=== PATIENT | male | born 1990 | race Caucasian/White ===

== ENCOUNTER 2016-06-14 15:02 | Inpatient (IN) | payer MEDICAID ==
[~2016-06-14] VITALS: Ht 172.7 cm; Wt 51.0 kg
[2016-06-14] MEDS ORDERED: SODIUM CHLORIDE 0.9% 1,000 ML ONE ×2 (16:41→20:03)
[2016-06-14 21:09] VITALS: BMI 12.0
[2016-06-14] MEDS ORDERED: ACETAMINOPHEN 325 MG TAB PO PRN (21:30)
[2016-06-14] MEDS ORDERED: ONDANSETRON 4 MG VIAL IV PRN (21:30)
[2016-06-14] MEDS ORDERED: ALU/MAG/SIM 30 ML UDC PO PRN (21:30)
[2016-06-14] MEDS ORDERED: SALINE FLUSH 10 ML FLUSH PRN (21:30)
[2016-06-14 21:44] VITALS: RESP 10
[2016-06-14 22:00] VITALS: BP_SYST 105; RESP 9
[2016-06-14 22:15] VITALS: BP_SYST 113; RESP 11; TEMP 95.7
[2016-06-14] MEDS ORDERED: HALOPERIDOL 5 MG/ML VIAL IV ONE (22:15)
[2016-06-14] MEDS: D5-1/2-NS W/KCL 20MEQ/L 1,000 ML IV SCH (22:37)
[2016-06-14 23:00] VITALS: BP_SYST 92; RESP 9; TEMP 95.7
[2016-06-15] VITALS (66 sets, daily range): BP systolic 65–126; RESP 9–24; TEMP 95.7–98.1
[2016-06-15] MEDS: SODIUM CHLORIDE 0.9% FLUSH BAG 500 ML IV SCH (04:05)
[2016-06-15] MEDS ORDERED: LIDOCAINE 2% JELLY GLYDO 6 ML TOPICAL ONE (07:40)
[2016-06-15] MEDS ORDERED: ENOXAPARIN 30 MG/0.3 ML SYR SUBQ SCH (09:00)
[2016-06-15] MEDS: SALINE FLUSH 10 ML FLUSH SCH ×2 (10:25→21:49)
[2016-06-15] MEDS: PANTOPRAZOLE 40 MG VIAL IV SCH (10:39)
[2016-06-15] MEDS ORDERED: LACT RINGERS 1,000 ML IV ONE ×4 (10:40→12:15)
[2016-06-15] MEDS: D5-1/2-NS W/KCL 20MEQ/L 1,000 ML IV SCH ×2 (13:15→23:11)
[2016-06-15] MEDS ORDERED: LORAZEPAM 2 MG/ML VIAL IV PRN (15:40)
[2016-06-15] MEDS: MAGNESIUM SULF 1 GM/100 ML 100 ML IV SCH ×2 (21:48→23:10)
[2016-06-16] VITALS (21 sets, daily range): BP systolic 72–123; RESP 9–18; TEMP 97–99.4; Ht 172.7 cm; Wt 51.0 kg
[2016-06-16] MEDS: SODIUM CHLORIDE 0.9% FLUSH BAG 500 ML IV SCH (06:22)
[2016-06-16] MEDS: PANTOPRAZOLE 40 MG VIAL IV SCH (08:29)
[2016-06-16] MEDS: SALINE FLUSH 10 ML FLUSH SCH ×2 (08:29→20:57)
[2016-06-16] MEDS: D5-1/2-NS W/KCL 20MEQ/L 1,000 ML IV SCH ×2 (08:31→20:57)
[2016-06-16] MEDS: BACITRACIN OINT TOPICAL SCH ×2 (11:39→20:57)
[2016-06-17 04:34] VITALS: BP_SYST 125; RESP 18; TEMP 98.9
[2016-06-17] MEDS: SODIUM CHLORIDE 0.9% FLUSH BAG 500 ML IV SCH (04:41)
[2016-06-17 07:47] VITALS: BP_SYST 90; RESP 18; TEMP 98.1
[2016-06-17] MEDS: PANTOPRAZOLE 40 MG VIAL IV SCH (08:39)
[2016-06-17] MEDS: SALINE FLUSH 10 ML FLUSH SCH ×2 (08:39→20:00)
[2016-06-17] MEDS: BACITRACIN OINT TOPICAL SCH ×2 (08:40→20:38)
[2016-06-17 11:25] VITALS: BP_SYST 92; TEMP 97.5
[2016-06-17 15:37] VITALS: BP_SYST 86; BP_SYST 98; RESP 16; TEMP 97.3
[2016-06-17] MEDS: D5-1/2-NS W/KCL 20MEQ/L 1,000 ML IV SCH (17:18)
[2016-06-17 19:00] VITALS: BP_SYST 90; RESP 18; TEMP 97.4
[2016-06-17 23:00] VITALS: BP_SYST 98; RESP 18; TEMP 97.5
[2016-06-18] MEDS: D5-1/2-NS W/KCL 20MEQ/L 1,000 ML IV SCH ×2 (02:56→14:15)
[2016-06-18 03:00] VITALS: BP_SYST 95; RESP 18; TEMP 97.9
[2016-06-18] MEDS: SODIUM CHLORIDE 0.9% FLUSH BAG 500 ML IV SCH (05:34)
[2016-06-18 07:19] VITALS: BP_SYST 96; RESP 16; TEMP 97.2
[2016-06-18] MEDS: SALINE FLUSH 10 ML FLUSH SCH ×2 (07:38→21:28)
[2016-06-18] MEDS: PANTOPRAZOLE 40 MG TAB PO SCH (09:04)
[2016-06-18] MEDS: BACITRACIN OINT TOPICAL SCH ×2 (09:04→21:28)
[2016-06-18 11:01] VITALS: BP_SYST 91; RESP 16; TEMP 97.7
[2016-06-18] MEDS ORDERED: Phytonadione 5 MG TAB PO ONE (12:05)
[2016-06-18 15:00] VITALS: BP_SYST 93; RESP 16; TEMP 98.4
[2016-06-18 20:12] VITALS: BP_SYST 95; RESP 18; TEMP 98.2
[2016-06-18] MEDS: FERROUS SULF 325 MG TAB PO SCH (21:28)
[2016-06-18] MEDS: FOLIC ACID 1 MG TAB PO SCH (21:28)
[2016-06-19] VITALS (7 sets, daily range): BP systolic 90–98; RESP 14–20; TEMP 97.7–98.7
[2016-06-19] MEDS: D5-1/2-NS W/KCL 20MEQ/L 1,000 ML IV SCH ×2 (00:34→19:36)
[2016-06-19] MEDS: SODIUM CHLORIDE 0.9% FLUSH BAG 500 ML IV SCH (05:32)
[2016-06-19] MEDS: PANTOPRAZOLE 40 MG TAB PO SCH (06:11)
[2016-06-19] MEDS: SALINE FLUSH 10 ML FLUSH SCH ×2 (08:27→19:11)
[2016-06-19] MEDS: BACITRACIN OINT TOPICAL SCH ×2 (08:27→20:01)
[2016-06-19] MEDS: FERROUS SULF 325 MG TAB PO SCH ×3 (08:27→20:01)
[2016-06-19] MEDS: FOLIC ACID 1 MG TAB PO SCH (08:27)
[2016-06-20 03:29] VITALS: BP_SYST 97; RESP 14; TEMP 97.8
[2016-06-20] MEDS: D5-1/2-NS W/KCL 20MEQ/L 1,000 ML IV SCH (04:57)
[2016-06-20] MEDS: SODIUM CHLORIDE 0.9% FLUSH BAG 500 ML IV SCH ×2 (05:04)
[2016-06-20] MEDS: PANTOPRAZOLE 40 MG TAB PO SCH (06:09)
[2016-06-20] MEDS: SALINE FLUSH 10 ML FLUSH SCH ×2 (07:38→19:18)
[2016-06-20 08:11] VITALS: BP_SYST 92; RESP 14; TEMP 97.6
[2016-06-20] MEDS: FERROUS SULF 325 MG TAB PO SCH ×3 (08:47→20:00)
[2016-06-20] MEDS: FOLIC ACID 1 MG TAB PO SCH (08:47)
[2016-06-20] MEDS: BACITRACIN OINT TOPICAL SCH ×2 (08:48→20:00)
[2016-06-20 12:34] VITALS: BP_SYST 94; RESP 14; TEMP 97.7
[2016-06-20 15:29] VITALS: BP_SYST 90; RESP 16; TEMP 97.4
[2016-06-20] MEDS: MIDODRINE 10 MG TAB PO SCH (16:49)
[2016-06-20 20:06] VITALS: BP_SYST 92; RESP 18; TEMP 98.2
[2016-06-21] VITALS (8 sets, daily range): BP systolic 83–94; RESP 14–20; TEMP 97.6–98.8
[2016-06-21] MEDS: SODIUM CHLORIDE 0.9% FLUSH BAG 500 ML IV SCH ×2 (05:06)
[2016-06-21] MEDS: MIDODRINE 10 MG TAB PO SCH ×3 (05:57→15:54)
[2016-06-21] MEDS: PANTOPRAZOLE 40 MG TAB PO SCH (05:57)
[2016-06-21] MEDS: BACITRACIN OINT TOPICAL SCH ×2 (08:10→21:32)
[2016-06-21] MEDS: FERROUS SULF 325 MG TAB PO SCH ×3 (08:10→21:32)
[2016-06-21] MEDS: FOLIC ACID 1 MG TAB PO SCH ×2 (08:10→21:32)
[2016-06-21] MEDS: SALINE FLUSH 10 ML FLUSH SCH ×2 (08:10→21:33)
[2016-06-22] MEDS ORDERED: MISSING DOSE XX ONE (03:15)
[2016-06-22] MEDS: SODIUM CHLORIDE 0.9% FLUSH BAG 500 ML IV SCH ×2 (04:12)
[2016-06-22 05:07] VITALS: BP_SYST 96; RESP 14; TEMP 98
[2016-06-22] MEDS: PANTOPRAZOLE 40 MG TAB PO SCH (06:16)
[2016-06-22] MEDS: MIDODRINE 10 MG TAB PO SCH ×3 (06:16→15:53)
[2016-06-22 07:29] VITALS: BP_SYST 90; RESP 16; TEMP 97.6
[2016-06-22] MEDS: SALINE FLUSH 10 ML FLUSH SCH ×2 (08:32→21:14)
[2016-06-22] MEDS: FERROUS SULF 325 MG TAB PO SCH ×3 (08:32→21:13)
[2016-06-22] MEDS: FOLIC ACID 1 MG TAB PO SCH ×2 (08:33→21:13)
[2016-06-22] MEDS: BACITRACIN OINT TOPICAL SCH ×2 (08:33→21:14)
[2016-06-22 11:36] VITALS: BP_SYST 89; RESP 24; TEMP 98.4
[2016-06-22 15:28] VITALS: BP_SYST 92; RESP 20; TEMP 98.7
[2016-06-22] MEDS: BISACODYL 10 MG SUPP RECTAL PRN (15:53)
[2016-06-22 19:36] VITALS: BP_SYST 92; RESP 16; TEMP 98.7
[2016-06-23] VITALS (7 sets, daily range): BP systolic 87–98; RESP 16–24; TEMP 97.3–98.9
[2016-06-23] MEDS: SODIUM CHLORIDE 0.9% FLUSH BAG 500 ML IV SCH ×2 (05:43)
[2016-06-23] MEDS: PANTOPRAZOLE 40 MG TAB PO SCH (05:44)
[2016-06-23] MEDS: MIDODRINE 10 MG TAB PO SCH ×3 (05:44→17:02)
[2016-06-23] MEDS: SALINE FLUSH 10 ML FLUSH SCH ×2 (08:00→21:04)
[2016-06-23] MEDS: BACITRACIN OINT TOPICAL SCH ×2 (10:27→21:04)
[2016-06-23] MEDS: FOLIC ACID 1 MG TAB PO SCH ×2 (10:27→21:04)
[2016-06-23] MEDS: FERROUS SULF 325 MG TAB PO SCH ×3 (10:27→21:04)
[2016-06-24 05:31] VITALS: BP_SYST 99; RESP 18; TEMP 98
[2016-06-24] MEDS: SODIUM CHLORIDE 0.9% FLUSH BAG 500 ML IV SCH ×2 (06:00)
[2016-06-24] MEDS: PANTOPRAZOLE 40 MG TAB PO SCH (06:16)
[2016-06-24] MEDS: MIDODRINE 10 MG TAB PO SCH ×3 (06:16→15:53)
[2016-06-24 07:20] VITALS: BP_SYST 82; BP_SYST 86; RESP 18; TEMP 97
[2016-06-24] MEDS: FERROUS SULF 325 MG TAB PO SCH ×3 (08:51→20:34)
[2016-06-24] MEDS: FOLIC ACID 1 MG TAB PO SCH ×2 (08:51→20:34)
[2016-06-24] MEDS: SALINE FLUSH 10 ML FLUSH SCH ×2 (08:51→20:34)
[2016-06-24] MEDS: BACITRACIN OINT TOPICAL SCH ×2 (08:51→20:34)
[2016-06-24 10:54] VITALS: BP_SYST 84; RESP 20; TEMP 97.5
[2016-06-24 15:21] VITALS: BP_SYST 95; RESP 18; TEMP 97.1
[2016-06-24 19:33] VITALS: BP_SYST 104; RESP 18; TEMP 97.2
[2016-06-24 23:32] VITALS: BP_SYST 81; BP_SYST 82; RESP 18; TEMP 97.4
[2016-06-25 03:36] VITALS: BP_SYST 86; RESP 18; TEMP 97.4
[2016-06-25] MEDS: SODIUM CHLORIDE 0.9% FLUSH BAG 500 ML IV SCH ×2 (06:00)
[2016-06-25] MEDS: PANTOPRAZOLE 40 MG TAB PO SCH (06:15)
[2016-06-25] MEDS: MIDODRINE 10 MG TAB PO SCH ×3 (06:15→16:05)
[2016-06-25 07:21] VITALS: BP_SYST 84; BP_SYST 86; RESP 18; TEMP 97.6
[2016-06-25] MEDS: SALINE FLUSH 10 ML FLUSH SCH ×2 (08:47→22:02)
[2016-06-25] MEDS: FOLIC ACID 1 MG TAB PO SCH ×2 (08:47→22:01)
[2016-06-25] MEDS: BACITRACIN OINT TOPICAL SCH ×2 (08:47→22:01)
[2016-06-25] MEDS: FERROUS SULF 325 MG TAB PO SCH ×3 (08:47→22:01)
[2016-06-25 11:13] VITALS: BP_SYST 91; BP_SYST 94; RESP 16; TEMP 98.1
[2016-06-25 14:50] VITALS: BP_SYST 64; RESP 20; TEMP 98
[2016-06-25 19:11] VITALS: BP_SYST 98; RESP 18; TEMP 97.9
[2016-06-25 23:26] VITALS: BP_SYST 76; BP_SYST 78; RESP 18; TEMP 98.3
[2016-06-26 03:08] VITALS: BP_SYST 88; RESP 18; TEMP 97.8
[2016-06-26] MEDS: SODIUM CHLORIDE 0.9% FLUSH BAG 500 ML IV SCH ×2 (06:00)
[2016-06-26 07:16] VITALS: BP_SYST 79; RESP 18; TEMP 98.3
[2016-06-26] MEDS: MIDODRINE 10 MG TAB PO SCH ×3 (07:21→17:56)
[2016-06-26] MEDS: PANTOPRAZOLE 40 MG TAB PO SCH (07:21)
[2016-06-26] MEDS: SALINE FLUSH 10 ML FLUSH SCH ×2 (08:00→20:16)
[2016-06-26] MEDS: BACITRACIN OINT TOPICAL SCH ×2 (09:32→20:17)
[2016-06-26] MEDS: FERROUS SULF 325 MG TAB PO SCH ×3 (09:32→20:17)
[2016-06-26] MEDS: FOLIC ACID 1 MG TAB PO SCH ×2 (09:33→20:16)
[2016-06-26 11:45] VITALS: BP_SYST 89; RESP 20; TEMP 97.6
[2016-06-26 15:16] VITALS: BP_SYST 94; RESP 16; TEMP 97.7
[2016-06-26 19:29] VITALS: BP_SYST 95; RESP 18; TEMP 98.1
[2016-06-26 23:22] VITALS: BP_SYST 92; RESP 18; TEMP 97.8
[2016-06-27 03:31] VITALS: BP_SYST 83; RESP 18; TEMP 97.8
[2016-06-27] MEDS: MAG HYDROX 30 ML UDC PO PRN (05:40)
[2016-06-27] MEDS: MIDODRINE 10 MG TAB PO SCH ×3 (05:41→18:23)
[2016-06-27] MEDS: PANTOPRAZOLE 40 MG TAB PO SCH (05:41)
[2016-06-27 07:37] VITALS: BP_SYST 95; RESP 16; TEMP 97.7
[2016-06-27] MEDS: FOLIC ACID 1 MG TAB PO SCH ×2 (08:31→21:22)
[2016-06-27] MEDS: FERROUS SULF 325 MG TAB PO SCH ×3 (08:31→21:22)
[2016-06-27] MEDS: SALINE FLUSH 10 ML FLUSH SCH ×2 (08:31→21:23)
[2016-06-27] MEDS: BACITRACIN OINT TOPICAL SCH ×2 (08:32→21:23)
[2016-06-27 10:41] VITALS: BP_SYST 96; RESP 18; TEMP 98
[2016-06-27 15:03] VITALS: BP_SYST 94; RESP 16; TEMP 97.2
[2016-06-27 19:18] VITALS: BP_SYST 83; RESP 16; TEMP 98.1
[2016-06-27 22:47] VITALS: BP_SYST 99; RESP 16; TEMP 97.8
[2016-06-28 04:01] VITALS: BP_SYST 87; RESP 16; TEMP 97.8
[2016-06-28] MEDS: PANTOPRAZOLE 40 MG TAB PO SCH (06:18)
[2016-06-28] MEDS: MIDODRINE 10 MG TAB PO SCH ×3 (06:18→16:32)
[2016-06-28 07:45] VITALS: BP_SYST 85; TEMP 97.9
[2016-06-28] MEDS: FERROUS SULF 325 MG TAB PO SCH ×3 (08:36→21:57)
[2016-06-28] MEDS: SALINE FLUSH 10 ML FLUSH SCH ×2 (08:36→20:00)
[2016-06-28] MEDS: BACITRACIN OINT TOPICAL SCH ×2 (08:36→21:58)
[2016-06-28] MEDS: FOLIC ACID 1 MG TAB PO SCH ×2 (08:36→21:51)
[2016-06-28 11:39] VITALS: BP_SYST 88; RESP 16; TEMP 97.4
[2016-06-28 15:07] VITALS: BP_SYST 90; RESP 18; TEMP 98
[2016-06-28 20:36] VITALS: BP_SYST 94; RESP 18; TEMP 98
[2016-06-28 23:26] VITALS: BP_SYST 92; RESP 16; TEMP 98
[2016-06-29 03:50] VITALS: BP_SYST 89; RESP 16; TEMP 97.7
[2016-06-29] MEDS: MIDODRINE 10 MG TAB PO SCH ×3 (06:22→15:20)
[2016-06-29] MEDS: PANTOPRAZOLE 40 MG TAB PO SCH (06:22)
[2016-06-29 07:26] VITALS: BP_SYST 83; RESP 16; TEMP 97.2
[2016-06-29] MEDS: FOLIC ACID 1 MG TAB PO SCH ×2 (08:59→20:59)
[2016-06-29] MEDS: SALINE FLUSH 10 ML FLUSH SCH ×2 (08:59→20:59)
[2016-06-29] MEDS: BACITRACIN OINT TOPICAL SCH ×2 (08:59→21:00)
[2016-06-29] MEDS: FERROUS SULF 325 MG TAB PO SCH ×3 (09:01→21:00)
[2016-06-29 11:46] VITALS: BP_SYST 95; RESP 16; TEMP 98.3
[2016-06-29 15:15] VITALS: BP_SYST 101; RESP 16; TEMP 98.6
[2016-06-29 20:32] VITALS: BP_SYST 91; RESP 16; TEMP 98.5
[2016-06-29 22:58] VITALS: BP_SYST 88; RESP 16; TEMP 97.3
[2016-06-30 04:19] VITALS: BP_SYST 94; RESP 18; TEMP 97.6
[2016-06-30] MEDS: PANTOPRAZOLE 40 MG TAB PO SCH (06:34)
[2016-06-30 07:58] VITALS: BP_SYST 78; RESP 16; TEMP 98.3
[2016-06-30] MEDS: SALINE FLUSH 10 ML FLUSH SCH ×2 (08:50→21:09)
[2016-06-30] MEDS: FOLIC ACID 1 MG TAB PO SCH ×2 (08:51→21:10)
[2016-06-30] MEDS: BACITRACIN OINT TOPICAL SCH ×2 (08:52→21:11)
[2016-06-30] MEDS: FERROUS SULF 325 MG TAB PO SCH ×3 (08:54→21:10)
[2016-06-30 12:04] VITALS: BP_SYST 86; RESP 18; TEMP 97.3
[2016-06-30 15:06] VITALS: BP_SYST 92; RESP 16; TEMP 97.4
[2016-06-30 19:50] VITALS: BP_SYST 83; RESP 18; TEMP 97.7
[2016-06-30 23:54] VITALS: BP_SYST 86; RESP 16; TEMP 97.5
[2016-07-01 03:15] VITALS: BP_SYST 84; RESP 16; TEMP 97.6
[2016-07-01] MEDS: PANTOPRAZOLE 40 MG TAB PO SCH (05:53)
[2016-07-01 07:30] VITALS: BP_SYST 88; RESP 16; TEMP 97.7
[2016-07-01] MEDS: SALINE FLUSH 10 ML FLUSH SCH ×2 (08:00→20:41)
[2016-07-01] MEDS: FERROUS SULF 325 MG TAB PO SCH ×3 (08:19→20:42)
[2016-07-01] MEDS: FOLIC ACID 1 MG TAB PO SCH ×2 (08:19→20:42)
[2016-07-01] MEDS: BACITRACIN OINT TOPICAL SCH ×2 (08:19→20:42)
[2016-07-01 11:02] VITALS: BP_SYST 87; RESP 16; TEMP 97.6
[2016-07-01 15:05] VITALS: BP_SYST 91; RESP 16; TEMP 97.9
[2016-07-01 19:47] VITALS: BP_SYST 87; RESP 18; TEMP 98
[2016-07-01 22:46] VITALS: BP_SYST 88; RESP 16; TEMP 97.5
[2016-07-02 03:05] VITALS: BP_SYST 94; RESP 16; TEMP 97.3
[2016-07-02] MEDS: PANTOPRAZOLE 40 MG TAB PO SCH (06:02)
[2016-07-02 07:32] VITALS: BP_SYST 84; RESP 16; TEMP 97.9
[2016-07-02] MEDS: SALINE FLUSH 10 ML FLUSH SCH ×2 (08:00→21:00)
[2016-07-02] MEDS: FOLIC ACID 1 MG TAB PO SCH ×2 (08:40→20:59)
[2016-07-02] MEDS: BACITRACIN OINT TOPICAL SCH ×2 (08:40→21:00)
[2016-07-02] MEDS: FERROUS SULF 325 MG TAB PO SCH ×3 (08:40→20:59)
[2016-07-02] MEDS ORDERED: MISSING DOSE XX ONE (08:45)
[2016-07-02 10:57] VITALS: BP_SYST 87; RESP 16; TEMP 97.5
[2016-07-02 15:16] VITALS: BP_SYST 93; RESP 20; TEMP 97.6
[2016-07-02 19:25] VITALS: BP_SYST 82; RESP 16; TEMP 97.4
[2016-07-02 23:46] VITALS: BP_SYST 91; RESP 16; TEMP 97.4
[2016-07-03 03:29] VITALS: BP_SYST 95; RESP 16; TEMP 97.6
[2016-07-03] MEDS: PANTOPRAZOLE 40 MG TAB PO SCH (05:41)
[2016-07-03 07:40] VITALS: BP_SYST 89; RESP 16; TEMP 97.1
[2016-07-03] MEDS: FOLIC ACID 1 MG TAB PO SCH ×2 (09:14→22:04)
[2016-07-03] MEDS: SALINE FLUSH 10 ML FLUSH SCH (09:15)
[2016-07-03] MEDS: BACITRACIN OINT TOPICAL SCH (09:15)
[2016-07-03] MEDS: FERROUS SULF 325 MG TAB PO SCH ×3 (09:15→22:04)
[2016-07-03 11:14] VITALS: BP_SYST 88; RESP 16; TEMP 97.5
[2016-07-03 15:22] VITALS: BP_SYST 95; RESP 16; TEMP 98.2
[2016-07-03 21:46] VITALS: BP_SYST 88; RESP 18; TEMP 98.7
[2016-07-04] VITALS (7 sets, daily range): BP systolic 84–100; RESP 16–18; TEMP 97.4–98.2
[2016-07-04] MEDS: FOLIC ACID 1 MG TAB PO SCH ×2 (11:16→23:00)
[2016-07-04] MEDS: FERROUS SULF 325 MG TAB PO SCH ×3 (11:16→23:00)
[2016-07-05] VITALS (10 sets, daily range): BP systolic 85–98; RESP 16–20; TEMP 97.4–97.9
[2016-07-05] MEDS: FERROUS SULF 325 MG TAB PO SCH ×3 (10:07→21:18)
[2016-07-05] MEDS: FOLIC ACID 1 MG TAB PO SCH ×2 (10:07→21:18)
[2016-07-06 03:42] VITALS: BP_SYST 96; RESP 18; TEMP 97.3
[2016-07-06 07:30] VITALS: BP_SYST 90; RESP 16; TEMP 98.1
[2016-07-06] MEDS: FERROUS SULF 325 MG TAB PO SCH ×3 (08:33→20:52)
[2016-07-06] MEDS: FOLIC ACID 1 MG TAB PO SCH ×2 (08:33→20:52)
[2016-07-06 11:05] VITALS: BP_SYST 96; RESP 16; TEMP 98.2
[2016-07-06 14:52] VITALS: BP_SYST 94; RESP 16; TEMP 97.9
[2016-07-06 19:36] VITALS: BP_SYST 96; RESP 18; TEMP 97.7
[2016-07-07] VITALS (8 sets, daily range): BP systolic 75–99; RESP 16–18; TEMP 97.4–98.2
[2016-07-07] MEDS: BISACODYL 10 MG SUPP RECTAL PRN (07:32)
[2016-07-07] MEDS: FOLIC ACID 1 MG TAB PO SCH ×2 (09:09→19:49)
[2016-07-07] MEDS: FERROUS SULF 325 MG TAB PO SCH ×3 (09:09→19:49)
[2016-07-07] MEDS ORDERED: SODIUM CHLORIDE 0.9% 1,000 ML IV SCH (12:25)
[2016-07-08 03:19] VITALS: BP_SYST 99; RESP 16; TEMP 97.2
[2016-07-08 07:21] VITALS: BP_SYST 91; RESP 16; TEMP 97.9
[2016-07-08] MEDS: FERROUS SULF 325 MG TAB PO SCH ×3 (09:26→20:59)
[2016-07-08] MEDS: FOLIC ACID 1 MG TAB PO SCH ×2 (09:26→21:00)
[2016-07-08 10:52] VITALS: BP_SYST 92; RESP 18; TEMP 98
[2016-07-08 14:46] VITALS: BP_SYST 98; RESP 18; TEMP 98.4
[2016-07-08 19:52] VITALS: BP_SYST 88; RESP 16; TEMP 97.7
[2016-07-09 00:24] VITALS: BP_SYST 98; RESP 16; TEMP 97.4
[2016-07-09 03:52] VITALS: BP_SYST 95; RESP 16; TEMP 97.7
[2016-07-09 07:19] VITALS: BP_SYST 90; RESP 16; TEMP 97.5
[2016-07-09] MEDS: FERROUS SULF 325 MG TAB PO SCH ×3 (09:52→20:35)
[2016-07-09] MEDS: FOLIC ACID 1 MG TAB PO SCH ×2 (09:52→20:35)
[2016-07-09 11:14] VITALS: BP_SYST 91; RESP 18; TEMP 97.9
[2016-07-09 15:34] VITALS: BP_SYST 92; RESP 18; TEMP 98.4
[2016-07-09 20:36] VITALS: BP_SYST 92; RESP 16; TEMP 97.7
[2016-07-10] VITALS (7 sets, daily range): BP systolic 86–96; RESP 16–20; TEMP 97.4–98.1
[2016-07-10] MEDS: FOLIC ACID 1 MG TAB PO SCH ×2 (09:35→21:31)
[2016-07-10] MEDS: FERROUS SULF 325 MG TAB PO SCH ×3 (09:35→21:31)
[2016-07-11 02:41] VITALS: BP_SYST 87; RESP 18; TEMP 97.9
[2016-07-11 07:14] VITALS: BP_SYST 102; RESP 16; TEMP 97.5
[2016-07-11] MEDS: FERROUS SULF 325 MG TAB PO SCH ×3 (08:36→20:11)
[2016-07-11] MEDS: FOLIC ACID 1 MG TAB PO SCH ×2 (08:36→20:11)
[2016-07-11 11:04] VITALS: BP_SYST 95; RESP 20; TEMP 98
[2016-07-11 15:44] VITALS: BP_SYST 97; RESP 16; TEMP 98.3
[2016-07-11 19:36] VITALS: BP_SYST 80; RESP 16; TEMP 98.5
[2016-07-11 23:24] VITALS: BP_SYST 95; RESP 18; TEMP 98.1
[2016-07-12 04:07] VITALS: BP_SYST 93; RESP 16; TEMP 98
[2016-07-12 07:12] VITALS: BP_SYST 97; RESP 16; TEMP 97.7
[2016-07-12] MEDS: FERROUS SULF 325 MG TAB PO SCH ×3 (08:33→21:00)
[2016-07-12] MEDS: FOLIC ACID 1 MG TAB PO SCH ×2 (08:33→21:00)
[2016-07-12] MEDS: BISACODYL 10 MG SUPP RECTAL PRN (08:33)
[2016-07-12 10:58] VITALS: BP_SYST 99; RESP 16; TEMP 97.8
[2016-07-12 15:34] VITALS: BP_SYST 95; RESP 20; TEMP 97.6
[2016-07-12 19:32] VITALS: BP_SYST 100; RESP 16; TEMP 97.8
[2016-07-12 19:33] VITALS: RESP 16
[2016-07-13 00:08] VITALS: BP_SYST 101; RESP 16; TEMP 97.3
[2016-07-13 04:37] VITALS: BP_SYST 92; RESP 16; TEMP 97.5
[2016-07-13 07:20] VITALS: BP_SYST 96; RESP 20; TEMP 97.5
[2016-07-13] MEDS: FERROUS SULF 325 MG TAB PO SCH ×3 (09:36→21:04)
[2016-07-13] MEDS: FOLIC ACID 1 MG TAB PO SCH ×2 (09:36→21:04)
[2016-07-13 11:04] VITALS: BP_SYST 97; RESP 20; TEMP 97.8
[2016-07-13 15:11] VITALS: BP_SYST 103; RESP 20; TEMP 97.9
[2016-07-13 19:24] VITALS: BP_SYST 90; RESP 20; TEMP 97.5
[2016-07-14] VITALS (8 sets, daily range): BP systolic 94–105; RESP 16–18; TEMP 97.4–99.1
[2016-07-14] MEDS: FOLIC ACID 1 MG TAB PO SCH ×2 (08:35→20:50)
[2016-07-14] MEDS: FERROUS SULF 325 MG TAB PO SCH ×3 (08:35→20:50)
[2016-07-15 03:18] VITALS: BP_SYST 104; RESP 18; TEMP 98
[2016-07-15 07:24] VITALS: BP_SYST 94; RESP 16; TEMP 98
[2016-07-15] MEDS: FERROUS SULF 325 MG TAB PO SCH ×3 (08:43→21:16)
[2016-07-15] MEDS: FOLIC ACID 1 MG TAB PO SCH ×2 (08:43→21:16)
[2016-07-15 10:47] VITALS: BP_SYST 93; RESP 20; TEMP 97.8
[2016-07-15 15:29] VITALS: BP_SYST 94; RESP 20; TEMP 97.5
[2016-07-15 19:42] VITALS: BP_SYST 96; RESP 18; TEMP 97.8
[2016-07-15 22:47] VITALS: BP_SYST 101; RESP 16; TEMP 97.6
[2016-07-16 03:11] VITALS: BP_SYST 103; RESP 18; TEMP 98.1
[2016-07-16 07:39] VITALS: BP_SYST 107; RESP 16; TEMP 97.7
[2016-07-16] MEDS: FOLIC ACID 1 MG TAB PO SCH ×2 (08:23→20:25)
[2016-07-16] MEDS: FERROUS SULF 325 MG TAB PO SCH ×3 (08:23→20:26)
[2016-07-16 11:52] VITALS: BP_SYST 106; RESP 18; TEMP 97.3
[2016-07-16 16:36] VITALS: BP_SYST 108; RESP 16; TEMP 98.1
[2016-07-16 19:33] VITALS: BP_SYST 98; RESP 16; TEMP 98.3
[2016-07-16 23:20] VITALS: BP_SYST 103; RESP 16; TEMP 98
[2016-07-17 04:08] VITALS: BP_SYST 104; RESP 16; TEMP 98.2
[2016-07-17 07:25] VITALS: BP_SYST 141; RESP 18; TEMP 98
[2016-07-17] MEDS: FERROUS SULF 325 MG TAB PO SCH ×3 (09:24→21:47)
[2016-07-17] MEDS: FOLIC ACID 1 MG TAB PO SCH ×2 (09:24→21:47)
[2016-07-17 11:47] VITALS: BP_SYST 111; RESP 18; TEMP 98.2
[2016-07-17 15:38] VITALS: BP_SYST 101; RESP 18; TEMP 98.1
[2016-07-17 19:06] VITALS: BP_SYST 101; RESP 18; TEMP 97.8
[2016-07-17 23:01] VITALS: BP_SYST 102; RESP 16; TEMP 97.5
[2016-07-18 02:53] VITALS: BP_SYST 93; RESP 18; TEMP 98.1
[2016-07-18 07:21] VITALS: BP_SYST 90; RESP 18; TEMP 97.3
[2016-07-18] MEDS: FOLIC ACID 1 MG TAB PO SCH ×2 (09:17→19:47)
[2016-07-18] MEDS: FERROUS SULF 325 MG TAB PO SCH ×3 (09:17→19:48)
[2016-07-18 11:05] VITALS: BP_SYST 96; RESP 18; TEMP 97.7
[2016-07-18 15:43] VITALS: BP_SYST 90; RESP 18; TEMP 97.5
[2016-07-18 19:35] VITALS: BP_SYST 107; RESP 18; TEMP 97.5
[2016-07-18 23:17] VITALS: BP_SYST 95; RESP 16; TEMP 97.5
[2016-07-19 03:25] VITALS: BP_SYST 96; RESP 18; TEMP 97.2
[2016-07-19 07:31] VITALS: BP_SYST 98; RESP 18; TEMP 97.3
[2016-07-19] MEDS: FERROUS SULF 325 MG TAB PO SCH ×3 (09:08→20:44)
[2016-07-19] MEDS: FOLIC ACID 1 MG TAB PO SCH ×2 (09:08→20:44)
[2016-07-19 11:46] VITALS: BP_SYST 94; RESP 18; TEMP 97.3
[2016-07-19 14:53] VITALS: BP_SYST 97; RESP 16; TEMP 97.7
[2016-07-19 19:50] VITALS: BP_SYST 102; RESP 18; TEMP 97.9
[2016-07-20] VITALS (7 sets, daily range): BP systolic 91–102; RESP 16–20; TEMP 97.6–98.2
[2016-07-20] MEDS: FOLIC ACID 1 MG TAB PO SCH ×2 (08:20→21:50)
[2016-07-20] MEDS: FERROUS SULF 325 MG TAB PO SCH ×3 (08:20→21:50)
[2016-07-21 03:25] VITALS: BP_SYST 101; RESP 20; TEMP 98.5
[2016-07-21 07:22] VITALS: BP_SYST 99; RESP 16; TEMP 97.3
[2016-07-21] MEDS: FERROUS SULF 325 MG TAB PO SCH ×3 (07:55→21:59)
[2016-07-21] MEDS: FOLIC ACID 1 MG TAB PO SCH ×2 (07:55→21:59)
[2016-07-21 11:17] VITALS: BP_SYST 92; RESP 16; TEMP 97.9
[2016-07-21 14:56] VITALS: BP_SYST 107; RESP 16; TEMP 98
[2016-07-21 19:26] VITALS: BP_SYST 114; RESP 18; TEMP 97.9
[2016-07-22] VITALS (7 sets, daily range): BP systolic 93–110; RESP 16–18; TEMP 97.7–98.2
[2016-07-22] MEDS: FERROUS SULF 325 MG TAB PO SCH ×3 (09:12→20:08)
[2016-07-22] MEDS: FOLIC ACID 1 MG TAB PO SCH ×2 (09:12→20:08)
[2016-07-23] VITALS (7 sets, daily range): BP systolic 93–112; RESP 16–20; TEMP 97.6–98.1
[2016-07-23] MEDS: FOLIC ACID 1 MG TAB PO SCH ×2 (08:57→20:01)
[2016-07-23] MEDS: FERROUS SULF 325 MG TAB PO SCH ×3 (08:57→20:01)
[2016-07-24 02:45] VITALS: BP_SYST 116; RESP 16; TEMP 97.6
[2016-07-24 07:24] VITALS: BP_SYST 106; RESP 18; TEMP 97.6
[2016-07-24] MEDS: FOLIC ACID 1 MG TAB PO SCH ×2 (08:22→19:29)
[2016-07-24] MEDS: FERROUS SULF 325 MG TAB PO SCH ×3 (08:22→19:29)
[2016-07-24 11:55] VITALS: BP_SYST 96; RESP 18; TEMP 97.5
[2016-07-24 15:05] VITALS: BP_SYST 98; RESP 18; TEMP 97.5
[2016-07-24 19:20] VITALS: BP_SYST 100; RESP 18; TEMP 97.8
[2016-07-24 23:54] VITALS: BP_SYST 95; RESP 16; TEMP 98
[2016-07-25 03:01] VITALS: BP_SYST 100; RESP 18; TEMP 97.7
[2016-07-25 07:36] VITALS: BP_SYST 104; RESP 18; TEMP 97.5
[2016-07-25] MEDS: FOLIC ACID 1 MG TAB PO SCH ×2 (09:01→21:37)
[2016-07-25] MEDS: FERROUS SULF 325 MG TAB PO SCH ×3 (09:01→21:37)
[2016-07-25 11:49] VITALS: BP_SYST 96; RESP 18; TEMP 97.8
[2016-07-25 15:12] VITALS: BP_SYST 109; RESP 18; TEMP 97.4
[2016-07-25 20:09] VITALS: BP_SYST 106; RESP 18; TEMP 98.9
[2016-07-25 22:48] VITALS: BP_SYST 104; RESP 18; TEMP 97.9
[2016-07-26 03:05] VITALS: BP_SYST 94; RESP 18; TEMP 97.7
[2016-07-26 07:25] VITALS: BP_SYST 99; RESP 16; TEMP 97.4
[2016-07-26] MEDS: FERROUS SULF 325 MG TAB PO SCH ×3 (08:22→19:39)
[2016-07-26] MEDS: FOLIC ACID 1 MG TAB PO SCH ×2 (08:22→19:39)
[2016-07-26 11:00] VITALS: BP_SYST 101; RESP 16; TEMP 98.2
[2016-07-26 15:30] VITALS: BP_SYST 107; RESP 16; TEMP 97.9
[2016-07-26 19:57] VITALS: BP_SYST 104; RESP 18; TEMP 98.4
[2016-07-26 23:25] VITALS: BP_SYST 103; RESP 18; TEMP 98.3
[2016-07-27 05:07] VITALS: BP_SYST 102; RESP 18; TEMP 97.9
[2016-07-27 07:12] VITALS: BP_SYST 104; RESP 16; TEMP 98
[2016-07-27] MEDS: FERROUS SULF 325 MG TAB PO SCH ×3 (08:47→20:00)
[2016-07-27] MEDS: FOLIC ACID 1 MG TAB PO SCH ×2 (08:47→20:00)
[2016-07-27 11:11] VITALS: BP_SYST 104; RESP 16; TEMP 98.1
[2016-07-27] MEDS ORDERED: MAG HYDROX 30 ML UDC ONE (12:50)
[2016-07-27 15:31] VITALS: BP_SYST 113; RESP 16; TEMP 98
[2016-07-27 19:19] VITALS: BP_SYST 110; RESP 20; TEMP 98
[2016-07-27 23:12] VITALS: BP_SYST 101; RESP 20; TEMP 98.1
[2016-07-28 05:26] VITALS: BP_SYST 102; RESP 16; TEMP 98
[2016-07-28 07:10] VITALS: BP_SYST 110; RESP 16; TEMP 97.5
[2016-07-28] MEDS: FERROUS SULF 325 MG TAB PO SCH ×3 (09:51→21:48)
[2016-07-28] MEDS: FOLIC ACID 1 MG TAB PO SCH ×2 (09:51→21:48)
[2016-07-28 11:07] VITALS: BP_SYST 105; RESP 20; TEMP 97.6
[2016-07-28 15:59] VITALS: BP_SYST 109; RESP 16; TEMP 97.5
[2016-07-28 19:39] VITALS: BP_SYST 109; RESP 18; TEMP 97.8
[2016-07-28 23:06] VITALS: BP_SYST 103; RESP 18; TEMP 97.7
[2016-07-29 06:38] VITALS: BP_SYST 115; RESP 20; TEMP 97.9
[2016-07-29 07:20] VITALS: BP_SYST 106; TEMP 98.3
[2016-07-29] MEDS: FOLIC ACID 1 MG TAB PO SCH ×2 (08:17→20:50)
[2016-07-29] MEDS: FERROUS SULF 325 MG TAB PO SCH ×3 (08:17→20:50)
[2016-07-29 10:55] VITALS: BP_SYST 102; RESP 18; TEMP 97.8
[2016-07-29 15:00] VITALS: BP_SYST 109; RESP 16; TEMP 98.5
[2016-07-29 19:23] VITALS: BP_SYST 102; RESP 18; TEMP 97.8
[2016-07-29 23:01] VITALS: BP_SYST 105; RESP 18; TEMP 98.1
[2016-07-30 03:48] VITALS: BP_SYST 107; RESP 18; TEMP 97.7
[2016-07-30 08:04] VITALS: BP_SYST 116; RESP 16; TEMP 97.3
[2016-07-30] MEDS: FERROUS SULF 325 MG TAB PO SCH ×3 (08:37→22:44)
[2016-07-30] MEDS: FOLIC ACID 1 MG TAB PO SCH ×2 (08:37→22:44)
[2016-07-30] MEDS ORDERED: MAG HYDROX 30 ML UDC ONE (10:21)
[2016-07-30] MEDS: MAG HYDROX 30 ML UDC PO PRN (10:25)
[2016-07-30 11:08] VITALS: BP_SYST 109; RESP 16; TEMP 98
[2016-07-30 14:46] VITALS: BP_SYST 102; RESP 18; TEMP 98.6
[2016-07-30 19:42] VITALS: BP_SYST 106; RESP 18; TEMP 98.7
[2016-07-30 23:12] VITALS: BP_SYST 104; RESP 16; TEMP 98.5
[2016-07-31 03:25] VITALS: BP_SYST 105; RESP 18; TEMP 98.1
[2016-07-31 07:25] VITALS: BP_SYST 98; RESP 20; TEMP 97.4
[2016-07-31] MEDS: FOLIC ACID 1 MG TAB PO SCH ×2 (09:33→20:08)
[2016-07-31] MEDS: FERROUS SULF 325 MG TAB PO SCH ×3 (09:33→20:08)
[2016-07-31 11:35] VITALS: BP_SYST 102; RESP 20; TEMP 97.9
[2016-07-31 14:58] VITALS: BP_SYST 104; RESP 20; TEMP 98.2
[2016-07-31 19:31] VITALS: BP_SYST 115; RESP 20; TEMP 98
[2016-07-31 23:56] VITALS: BP_SYST 111; RESP 20; TEMP 97.5
[2016-08-01 02:59] VITALS: BP_SYST 115; RESP 20; TEMP 97.8
[2016-08-01] MEDS ORDERED: MISSING DOSE XX ONE (05:05)
[2016-08-01] MEDS ORDERED: ALU/MAG/SIM 30 ML UDC PO PRN (05:15)
[2016-08-01] MEDS ORDERED: BISACODYL 10 MG SUPP RECTAL PRN (05:15)
[2016-08-01] MEDS ORDERED: MAG HYDROX 30 ML UDC PO PRN (05:15)
[2016-08-01 07:37] VITALS: BP_SYST 106; RESP 20; TEMP 97.6
[2016-08-01] MEDS: FOLIC ACID 1 MG TAB PO SCH ×2 (08:21→21:00)
[2016-08-01] MEDS: FERROUS SULF 325 MG TAB PO SCH ×3 (08:21→21:00)
[2016-08-01 12:02] VITALS: BP_SYST 116; RESP 20; TEMP 98.2
[2016-08-01 16:06] VITALS: BP_SYST 119; RESP 18; TEMP 97.8
[2016-08-01 19:57] VITALS: BP_SYST 96; RESP 18; TEMP 98.6
[2016-08-01 23:05] VITALS: BP_SYST 96; RESP 18; TEMP 98
[2016-08-02 03:23] VITALS: BP_SYST 107; RESP 18; TEMP 97.4
[2016-08-02 08:05] VITALS: BP_SYST 109; RESP 16; TEMP 97.6
[2016-08-02] MEDS: FERROUS SULF 325 MG TAB PO SCH ×3 (09:38→21:11)
[2016-08-02] MEDS: FOLIC ACID 1 MG TAB PO SCH ×2 (09:38→21:11)
[2016-08-02 16:31] VITALS: BP_SYST 121; RESP 16; TEMP 98.3
[2016-08-02 20:22] VITALS: BP_SYST 107; RESP 18; TEMP 98.4
[2016-08-03 00:35] VITALS: BP_SYST 105; RESP 18; TEMP 98.1
[2016-08-03 03:32] VITALS: BP_SYST 105; RESP 18; TEMP 97.6
[2016-08-03 07:30] VITALS: BP_SYST 108; RESP 16; TEMP 97.7
[2016-08-03] MEDS: FOLIC ACID 1 MG TAB PO SCH (08:15)
[2016-08-03] MEDS: FERROUS SULF 325 MG TAB PO SCH (08:15)
[2016-08-03 10:39] VITALS: BP_SYST 101; RESP 16; TEMP 97.7
[2016-08-03 15:18] VITALS: BP_SYST 103; RESP 16; TEMP 97.3
[2016-08-03 15:56] VITALS: BP_SYST 103; RESP 16; TEMP 97.3
== END 2016-08-03 18:46 | disposition home or self-care (01) | DRG 640 ==
LOC: ENRESERV → ENRESERVTM → ENRESERVDT → ER 15:02 → EMR 20:00 → ENPENDDIS 20:00 → CCU 21:00 → PCU 06-16 12:57 → 4NT 06-21 11:23
PROVIDERS: ADMIT Internal Medicine; ATTEND Internal Medicine
PROC: 0T9B80Z Drainage of Bladder with Drainage Device, Via Natural or Artificial Opening Endoscopic (ICD-10-PCS; principal; 2016-06-15)
PROC: 3C1ZX8Z Irrigation of Indwelling Device using Irrigating Substance, External Approach (ICD-10-PCS; 2016-06-15)
PROC: 02HV33Z Insertion of Infusion Device into Superior Vena Cava, Percutaneous Approach (ICD-10-PCS; 2016-06-15)
PROC: B548ZZA Ultrasonography of Superior Vena Cava, Guidance (ICD-10-PCS; 2016-06-15)
CPT/HCPCS: 36415; 36430; 36569; 70450; 74022; 76937; 80048; 80053; 80069; 80074; 80076; 81003; 82103; 82248; 82390; 82533; 82607; 82652; 82746; 83540; 83605; 83735; 84439; 84443; 84466; 85014; 85018; 85025; 85610; 85730; 86022; 86038; 86141; 86256; 86850; 86900; 86901; 86923; 93922; 94799; 96360; 96361; 99221; 99222; 99231; 99232; 99233; 99239; 99291